=== PATIENT | male | born 1980 | race Caucasian/White ===

== ENCOUNTER 2022-05-14 19:54 | Emergency (ER) | payer MEDICAID, SELFPAY ==
[2022-05-14 19:55] VITALS: BP 160/98; PULSE 102; RESP 16; TEMP 36.6; O2SAT 98; BMI 33.7
[2022-05-14 20:53] LABS: Absolute Lymphocyte Count 1.78 X10^3/uL (0.83-4.51); Absolute Neutrophil Count 4.4 X10^3/uL (2.0-7.7); Basophil# 0.14 X10^3/uL; Basophil% 1.9 % (0-1); Eosinophil# 0.21 X10^3/uL; Eosinophils% 2.9 % (0-5); Hematocrit 47.4 % (40-54); Hemoglobin 16.3 g/dL (13.0-16.5); Lymphocyte # 1.78 X10^3/ul (0.83-4.51); Lymphocyte % 24.4 % (19-41); Mean Corp Hgb Conc 34.4 g/dL (32-36); Mean Corpuscular Hgb 33.7 pg (27.0-32.0); Mean Corpuscular Volume 97.9 fL (80-94); Mean Platelet Vol. 9.1 fl (6.2-12.0); Monocyte% 9.6 % (0-10); NRBC Flagged by Analyzer 0 % (0-5); Neutrophil # 4.44 X10^3/uL (2.7-7.7); Neutrophil % 60.8 % (47-70); Platelet Count 233 K/mm3 (150-450); RBC Distribution Width CV 12.1 % (11.6-14.6); RBC Distribution Width SD 43.8 fl (35.1-43.9); Red Blood Count 4.84 M/mm3 (4.6-6.2); White Blood Count 7.3 K/mm3 (4.4-11.0)
[2022-05-14 21:06] LABS: Anion Gap 10 (5-15); BUN 4 mg/dL (7-18); BUN/Creat Ratio 4.8 RATIO (10-20); Calcium,Total 8.6 mg/dL (8.5-10.1); Chloride 105 mmol/L (98-107); Creatinine, Serum 0.84 mg/dL (0.70-1.30); EST Glomerular Filtration Rate 106 mL/min (>60); Est Glom Filt Rate - Afr Amer 128 mL/min (>60); Estimated Creatinine Clearance 136.92 ml/min; Glucose 118 mg/dL (74-106); Potassium 3.8 mmol/L (3.5-5.1); Sodium Level 137 mmol/L (136-145)
[2022-05-14 21:17] LABS: Amphetamine Urine VISTA NEGATIVE (<1000 ng/mL); Barbiturate Urine VISTA NEGATIVE (< 200 ng/mL); Benzodiazepine Urine VISTA NEGATIVE (< 200 ng/mL); Cocaine Urine VISTA NEGATIVE (< 300 ng/mL); Ecstacy Urine VISTA NEGATIVE (< 500 ng/mL); Methadone Urine VISTA NEGATIVE (< 300 ng/mL); PCP Urine VISTA NEGATIVE (< 25 ng/mL); THC Urine VISTA NEGATIVE (< 50 ng/mL); Vista UDS pH Range 5
--- NOTE | 2022-05-14 21:18 | EDS_ITS ---
HPI <Dr. Issac Hemphill MD - Last Filed: 05/14/22 21:28> HPI - Psych History of Present Illness Chief Complaint: Mental Health Detail of Chief Complaint: Depression, anxiety suicidal thoughts Informant: patient Onset/Context/Timing Onset: Days Context: Sudden Onset Conflict: Family, Work and Financial Timing: Continuous Current Severity: Moderate Maximum Severity: Severe Worsened by: Alcohol intoxication Relieved by: Nothing Associated Symptoms Associated Symptoms - Psych: Positive for Depressed, Change in Eating, Change in sleeping, Decreased Interest, Hopelessness and Suicidal Thoughts; Negative for Guilt, Easily distracted, Grandiosity, Flight of Ideas, Increased activity, Pressured Speech, Agitated, Angry, Hostile, Threatening, Confusion, Paranoia, Visual Hallucinations or Auditory Hallucinations Specific plan (suicidal thought): Presently he has no specific plan. When asked if he were to harm himself h Narrative Narrative: Patient is a 41-year-old male who presents because of depression, anxiety and hopelessness. He states he cannot hold a job. He states he is going to lose his residence. He does admit to smoking daily and drinking 6-12 beers a day. He states he no longer uses illicit drugs. He is . He has been for 9 years. He has no children. He was hospitalized 22 years ago for suicidal attempt. He states he does not believe he would harm himself because of the effect it had on his family. Patient is present on no meds. He states he has never been on medication for depression or anxiety. He then commented he was on Wellbutrin for smoke cessation; however, he had adverse reaction and became wild and agitated. He states he may have been on and SSRI and had an adverse reaction. Prior similar symptoms: Yes Recent Illness/Hospitalization: No PFSH <Dr. Issac Hemphill MD - Last Filed: 05/14/22 21:28> PFSH Medical History (Updated 05/14/22 @ 21:[address] Issac Hemphill MD) Anxiety Depression Allergy/AdvReac Type Severity Reaction Status Date / Time No Known Allergies Allergy Verified 05/14/22 20:00 Social History (Updated 05/14/22 @ 21:[address] Issac Hemphill MD) household members: none Smoking Status: Heavy Smoker (>10/day) alcohol intake: current alcohol intake frequency: 3 or more drinks per day substance use type: former substance user ROS <Dr. Issac Hemphill MD - Last Filed: 05/14/22 21:28> ROS ED Constitutional Constitutional ED: Denies chills, fever(s), subjective, sweats or weight loss Eyes Eyes: Denies blurry vision, change in vision or diplopia ENT ENT ED: Denies ear pain, rhinorrhea or sore throat Cardiovascular Cardiovascular: Denies chest pain, orthopnea, palpitations or racing heartbeat Respiratory/Chest Respiratory/Chest: Denies cough, dyspnea, dyspnea on exertion or orthopnea Gastrointestinal Gastrointestinal: Denies abdominal pain, melena, nausea or vomiting Genitourinary Genitourinary ED: Denies dysuria, hematuria or urinary frequency Musculoskeletal Musculoskeletal: Denies arthralgias, back pain, myalgias or neck pain Integumentary Denies abscess, Abrasions or rash Neurologic Neurologic: Denies headache(s), paresthesias or weakness Psychiatric Psychiatric: Reports anxiety, depression and suicidal thoughts Endocrine Endocrinology: Denies polydipsia, polyphagia or polyuria Hematologic/Lymphatic Hematologic/Lymphatic: Denies easy bleeding or easy bruising EXAM <Dr. Issac Hemphill MD - Last Filed: 05/14/22 21:28> Physical Exam Const Vital Signs: 05/14/22 19:55 05/15/22 00:00 05/15/22 01:00 Temperature 98 F Temperature Source Temporal Pulse Rate 102 H 69 Respiratory Rate 16 16 16 Blood Pressure 160/98 H 133/74 H Blood Pressure Mean 118 93 Pulse Ox 98 99 Oxygen Delivery Method Room Air Room Air 05/15/22 02:00 05/15/22 04:00 05/15/22 05:00 Temperature Temperature Source Pulse Rate 86 Respiratory Rate 14 16 16 Blood Pressure Blood Pressure Mean Pulse Ox 98 Oxygen Delivery Method Room Air Room Air 05/15/22 06:00 05/15/22 07:03 Temperature Temperature Source Pulse Rate 74 Respiratory Rate 16 18 Blood Pressure 140/90 H Blood Pressure Mean 106 Pulse Ox 97 Oxygen Delivery Method Room Air Room Air Positive well nourished, well developed, obese and unkempt General Appearance ED: unkempt and well developed; Negative for NAD or pallor Nutritional Appearance: obese HEENT Reports moist mucous membranes HEENT Narrative: Ears normal. TMs normal. Nares patent. Posterior pharynx not erythema or exudate. Uvula midline. normocephalic and atraumatic Eyes PERRL and EOMs intact bilaterally General Eye ED: Negative for pale conjunctiva or scleral icterus Neck no lymphadenopathy, supple and no JVD Resp normal respiratory effort and clear to auscultation bilaterally Cardio S1 normal heart sound, S2 normal heart sound and no murmurs Rate: regular rate Rhythm: regular rhythm GI non-tender, non-distended and no masses Auscultation: hypoactive bowel sounds Palpation: soft Back/Spine no CVA tenderness Cervical Spine: Negative for cervical spine tenderness Thoracic Spine / Upper Back: Negative for thoracic spinal tenderness Lumbar Spine / Lower Back: Negative for lumbar spinal tenderness Extremity Negative for normal to inspection Extremity Narrative: Positive pedal edema bilaterally. Suspect dependent pedal edema. General Extremety ED: Yes edema; Negative for tenderness or other findings General Extremity: edema; Negative for other findings Neuro oriented x3, CN's II-XII intact bilaterally, no sensory deficits noted and deep tendon reflexes 2+ bilaterally Neuro Narrative: There is no clonus or Babinski sign. Jason Coma Scale: document GCS findings Spontaneous Extensor Response Sensorium / Orientation: alert, oriented to person, oriented to place and oriented to time Motor Exam: strength 5/5 throughout and muscle tone normal throughout Psych thought process normal, cooperative, denies hallucinations and denies homicidal ideation; Negative for denies suicidal ideation Appearance: appropriate and unkempt; Negative for grossly normal Attitude: calm and withdrawn Activity / Motor Behavior: appropriate eye contact and psychomotor slowing Speech: minimal, slow and soft Mood & Affect: depressed, sad, tearful and labile affect Thought Process: normal thought process Thought Content: suicidality, No hallucination(s), No derealization, No depersonalization and No rumination(s) Attention / Concentration: attention grossly intact and concentration grossly intact Memory / Cognition: memory grossly intact Insight: fair Judgement: fair Skin Skin Narrative: Patient has minimal abrasions lower lower extremity exam area General Skin Exam: Negative for jaundice or pallor Lesions: no lesions Rashes: no rashes Trauma: abrasion <Dr. Jamshid Snow MD - Last Filed: 05/15/22 08:21> Physical Exam Const Vital Signs: 05/14/22 19:55 05/15/22 00:00 05/15/22 01:00 Temperature 98 F Temperature Source Temporal Pulse Rate 102 H 69 Respiratory Rate 16 16 16 Blood Pressure 160/98 H 133/74 H Blood Pressure Mean 118 93 Pulse Ox 98 99 Oxygen Delivery Method Room Air Room Air 05/15/22 02:00 05/15/22 04:00 05/15/22 05:00 Temperature Temperature Source Pulse Rate 86 Respiratory Rate 14 16 16 Blood Pressure Blood Pressure Mean Pulse Ox 98 Oxygen Delivery Method Room Air Room Air 05/15/22 06:00 05/15/22 07:03 Temperature Temperature Source Pulse Rate 74 Respiratory Rate 16 18 Blood Pressure 140/90 H Blood Pressure Mean 106 Pulse Ox 97 Oxygen Delivery Method Room Air Room Air MDM <Dr. Issac Hemphill MD - Last Filed: 05/14/22 21:28> [facility] MDM Narrative Medical decision making narrative: Patient presents as labile emotional and tearful stating he can no longer live like this and feels hopeless. Concern he will lose his residence and unable to sustain constant employment. Patient believes he would benefit from hospitalization. He does not want to harm himself. He does admit to suicide attempt 22 years ago requiring hospitalization Lab Data Attestation: I reviewed the patient's lab results. Lab results narrative: Patient's work-up is remarkable an alcohol level greater than 300. Crisis will be contacted once his level is below 100 per their protocol. Labs: Laboratory Results - last 24 hr 05/14/22 05/14/22 05/14/22 20:39 20:39 20:39 WBC 7.3 RBC 4.84 Hgb 16.3 Hct 47.4 MCV 97.9 H MCH 33.7 H MCHC 34.4 RDW Std Deviation 43.8 RDW Coeff of Masha 12.1 Plt Count 233 MPV 9.1 Immature Gran % (Auto) 0.400 Neut % (Auto) 60.8 Lymph % (Auto) 24.4 Chaves % (Auto) 9.6 Eos % (Auto) 2.9 Baso % (Auto) 1.9 H Absolute Neuts (auto) 4.4 Absolute Lymphs (auto) 1.78 Nucleated RBC % 0 Sodium 137 Potassium 3.8 Chloride 105 Carbon Dioxide 22.0 Anion Gap 10 BUN 4 L Creatinine 0.84 Estim Creat Clear Calc 136.92 Est GFR (MDRD) Af Amer 128 Est GFR (MDRD) Non-Af 106 BUN/Creatinine Ratio 4.8 L Glucose 118 H Calcium 8.6 Urine Opiates Screen Urine Methadone Screen Ur Barbiturates Screen Ur Phencyclidine Scrn Ur Amphetamines Screen MDMA (Ecstasy) Screen U Benzodiazepines Scrn Urine Cocaine Screen U Cannabinoids Screen Ur Drug Screen Comment Ethyl Alcohol 371.0 H* 05/14/22 05/15/22 05/15/22 20:44 04:05 07:00 WBC RBC Hgb Hct MCV MCH MCHC RDW Std Deviation RDW Coeff of Masha Plt Count MPV Immature Gran % (Auto) Neut % (Auto) Lymph % (Auto) Chaves % (Auto) Eos % (Auto) Baso % (Auto) Absolute Neuts (auto) Absolute Lymphs (auto) Nucleated RBC % Sodium Potassium Chloride Carbon Dioxide Anion Gap BUN Creatinine Estim Creat Clear Calc Est GFR (MDRD) Af Amer Est GFR (MDRD) Non-Af BUN/Creatinine Ratio Glucose Calcium Urine Opiates Screen NEGATIVE Urine Methadone Screen NEGATIVE Ur Barbiturates Screen NEGATIVE Ur Phencyclidine Scrn NEGATIVE Ur Amphetamines Screen NEGATIVE MDMA (Ecstasy) Screen NEGATIVE U Benzodiazepines Scrn NEGATIVE Urine Cocaine Screen NEGATIVE U Cannabinoids Screen NEGATIVE Ur Drug Screen Comment Ethyl Alcohol 158.0 91.0 <Dr. Jamshid Snow MD - Last Filed: 05/15/22 08:21> MDM MDM Narrative Medical decision making narrative: Patient presents as labile emotional and tearful stating he can no longer live like this and feels hopeless. Concern he will lose his residence and unable to sustain constant employment. Patient believes he would benefit from hospitalization. He does not want to harm himself. He does admit to suicide attempt 22 years ago requiring hospitalization Patient turned over to me by the overnight physician. Patient's had some nausea and vomiting and anxiety. Possible withdrawal. He was given p.o. Zofran and p.o. Ativan because currently does not have an IV. His second repeat alcohol returned and is 91. Patient is resting comfortably. Will be evaluated by crisis. Lab Data Labs: Laboratory Results - last 24 hr 05/14/22 05/14/22 05/14/22 20:39 20:39 20:39 WBC 7.3 RBC 4.84 Hgb 16.3 Hct 47.4 MCV 97.9 H MCH 33.7 H MCHC 34.4 RDW Std Deviation 43.8 RDW Coeff of Masha 12.1 Plt Count 233 MPV 9.1 Immature Gran % (Auto) 0.400 Neut % (Auto) 60.8 Lymph % (Auto) 24.4 Chaves % (Auto) 9.6 Eos % (Auto) 2.9 Baso % (Auto) 1.9 H Absolute Neuts (auto) 4.4 Absolute Lymphs (auto) 1.78 Nucleated RBC % 0 Sodium 137 Potassium 3.8 Chloride 105 Carbon Dioxide 22.0 Anion Gap 10 BUN 4 L Creatinine 0.84 Estim Creat Clear Calc 136.92 Est GFR (MDRD) Af Amer 128 Est GFR (MDRD) Non-Af 106 BUN/Creatinine Ratio 4.8 L Glucose 118 H Calcium 8.6 Urine Opiates Screen Urine Methadone Screen Ur Barbiturates Screen Ur Phencyclidine Scrn Ur Amphetamines Screen MDMA (Ecstasy) Screen U Benzodiazepines Scrn Urine Cocaine Screen U Cannabinoids Screen Ur Drug Screen Comment Ethyl Alcohol 371.0 H* 05/14/22 05/15/22 05/15/22 20:44 04:05 07:00 WBC RBC Hgb Hct MCV MCH MCHC RDW Std Deviation RDW Coeff of Masha Plt Count MPV Immature Gran % (Auto) Neut % (Auto) Lymph % (Auto) Chaves % (Auto) Eos % (Auto) Baso % (Auto) Absolute Neuts (auto) Absolute Lymphs (auto) Nucleated RBC % Sodium Potassium Chloride Carbon Dioxide Anion Gap BUN Creatinine Estim Creat Clear Calc Est GFR (MDRD) Af Amer Est GFR (MDRD) Non-Af BUN/Creatinine Ratio Glucose Calcium Urine Opiates Screen NEGATIVE Urine Methadone Screen NEGATIVE Ur Barbiturates Screen NEGATIVE Ur Phencyclidine Scrn NEGATIVE Ur Amphetamines Screen NEGATIVE MDMA (Ecstasy) Screen NEGATIVE U Benzodiazepines Scrn NEGATIVE Urine Cocaine Screen NEGATIVE U Cannabinoids Screen NEGATIVE Ur Drug Screen Comment Ethyl Alcohol 158.0 91.0 Discharge Plan Triage Chief Complaint: Mental Health ED Provider: Issac Hemphill Dx/Rx/DC Orders Clinical Impression: Depression, Suicidal thoughts, Alcoholism, Blood alcohol level greater than 0.3 Primary Care Provider: Care Physician,No Primary Referrals: Care Physician,No Primary [Primary Care Provider] -
--- NOTE | 2022-05-14 22:00 | ED.RN ---
PATIENT MADE AWARE OF ETOH LEVEL AND THAT HE WOULD HAVE TO WAIT FOR ETOH LEVEL TO DROP BEFORE CRISIS COULD SPEAK TO HIM. HE IS AWARE OF THE PLAN AND AGREES NO OTHER NEEDS AT THIS TIME
[2022-05-15] VITALS (18 sets, daily range): BP systolic 130–140; BP diastolic 74–98; PULSE 69–97; RESP 14–20; TEMP 36.6; O2SAT 97–99
--- NOTE | 2022-05-15 04:49 | ED.RN ---
patient made aware of test results. will redraw blood in 2-3 hours to recheck level patient aware and agrees to plan
[2022-05-15] MEDS: LORazepam 1 MG Tablet PO (07:24)
[2022-05-15] MEDS: Ondansetron ODT 4 MG Tablet PO (07:24)
--- NOTE | 2022-05-15 07:49 | NURSING ---
CRISIS IN ROOM
[2022-05-15] MEDS: LORazepam 2 MG/ML Syringe 1 MG IM (08:25)
--- NOTE | 2022-05-15 12:00 | CM.ED ---
Addendum entered by Pascale Orozco 05/15/22 13:36: SW placed a call to [facility] to inquire about referral. [facility] states they have not received a referral yet for pt. SW placed a call to [facility], they have had trouble with their faxes and had to scan referral and sent by email about 15-20 minutes ago. SW also received message from Sidra at [facility] stating they also referred pt to [facility] and confirmed they are having difficulties with their faxes. SW also faxed referral to [facility] and [facility] to make sure facilities get the referral for pt. Pascale Orozco NUCLEAR MEDICAL TECHNOLOGIST, ACUPRESSURE THERAPIST Original Note: Social Work Note SW placed a call to Chyna at [facility] and left message for update on pt. SW received message from Chyna stating she has completed assessment for pt and referral has been faxed to [facility]. Pascale Orozco MSW, ACUPRESSURE THERAPIST
--- NOTE | 2022-05-15 13:42 | NURSING ---
CALLED KYLE, ETA IS 5 HOURS. ASKED TO OUTSOURCE. VINCE SAID NO ONE WILL DO IT BECAUSE IT'S A 1 HOUR AND 40 MIN TRIP
--- NOTE | 2022-05-15 14:02 | CM.ED ---
Addendum entered by Pascale Orozco 05/15/22 14:17: Transfer form completed. Original Note: Social Work Note SW spoke with Aubrey Mahsa. Pt has been accepted to [facility]. [place] is Completed. SW asked Mahsa about transfer form, SW informed that nurse has transfer form. As noted, pt has been accepted to [facility]. Accepting physician is Dr. Danish Boone PICKLER HELPER. RN to RN is [phone] option 1. Pt is going to Dual Diagnosis Unit. Pascale Orozco OPERATOR COATING FURNACE, CHARGING MACHINE OPERATOR
--- NOTE | 2022-05-15 17:37 | CM.ED ---
Social Work Note SW updated pt that he has been accepted to [facility] - just waiting transportation. Pt asked if this was voluntary. SW informed pt that he is [place] [facility] so pt has to remain at facility for 72 hours. Pt states that he was supposed to start a new job last night, and they are aware pt is at [facility] but states he is supposed to be there Wednesday. SW informed pt that he can get a work release form while at [facility]. Pt states understanding. Plan: [facility] Pascale Orozco CREWMAN MAIN BATTLE TANK, 3D MODELER
== END 2022-05-16 00:06 ==
PROVIDERS: Emergency Medicine; Emergency Provider Emergency Medicine; Visit Provider Emergency Medicine
DX: F32.A Depression, unspecified (principal); F10.229 Alcohol dependence with intoxication, unspecified; R45.851 Suicidal ideations; F17.200 Nicotine dependence, unspecified, uncomplicated; E66.9 Obesity, unspecified
CPT/HCPCS: 36415; 80048; 80307; 82077; 85025; 87811; 96372; 99285

== ENCOUNTER → 2022-06-25 | Outpatient (CLI) | payer MEDICAID, SELFPAY ==
[2022-06-25 17:47] LABS: Hematocrit 45.4 % (40-54); Hemoglobin 15.2 g/dL (13.0-16.5); Mean Corp Hgb Conc 33.5 g/dL (32-36); Mean Corpuscular Hgb 32.6 pg (27.0-32.0); Mean Corpuscular Volume 97.4 fL (80-94); Mean Platelet Vol. 9.6 fl (6.2-12.0); Platelet Count 236 K/mm3 (150-450); RBC Distribution Width CV 12.4 % (11.6-14.6); RBC Distribution Width SD 44.4 fl (35.1-43.9); Red Blood Count 4.66 M/mm3 (4.6-6.2); White Blood Count 9.5 K/mm3 (4.4-11.0)
[2022-06-25 18:10] LABS: ALB/GLOB Ratio 0.7 RATIO (0.9-2.4); AST(SGOT) 57 U/L (15-37); Alanine Aminotransfer ALT/SGPT 56 U/L (16-61); Albumin, Serum 3.5 g/dL (3.2-5.0); Alkaline Phosphatase 99 U/L (45-117); Anion Gap 9 (5-15); BUN 5 mg/dL (7-18); BUN/Creat Ratio 5.9 RATIO (10-20); Calcium,Total 9.1 mg/dL (8.5-10.1); Chloride 105 mmol/L (98-107); Creatinine, Serum 0.84 mg/dL (0.70-1.30); EST Glomerular Filtration Rate 106 mL/min (>60); Est Glom Filt Rate - Afr Amer 128 mL/min (>60); Globulin 4.7 g/dL (2.2-4.2); Glucose 105 mg/dL (74-106); Potassium 3.9 mmol/L (3.5-5.1); Protein, Total 8.2 g/dL (6.4-8.2); Sodium Level 139 mmol/L (136-145)
== END | disposition home or self-care (01) ==
LOC: MTLAB 15:42
PROVIDERS: Referring Provider Physician Assistant; Visit Provider Physician Assistant
DX: D18.01 Hemangioma of skin and subcutaneous tissue (principal); R60.0 Localized edema; L29.8 Other pruritus; L73.8 Other specified follicular disorders; L71.8 Other rosacea
CPT/HCPCS: 36415; 80053; 85027

== ENCOUNTER → 2023-05-26 | Outpatient (CLI) | payer MEDICAID, SELFPAY ==
--- NOTE | 2023-05-26 15:46 | RAD_ITS ---
INDICATION: fall EXAMINATION/TECHNIQUE: X-RAY - XR Spine Lumbar Min 4 Views COMPARISON: None. FINDINGS: VERTEBRAE: Age-indeterminate superior endplate compression deformity of L1 with 30% anterior vertebral height loss. Other multilevel chronic appearing vertebral height loss in the lower thoracic and lumbar spine without gross cortical disruption. Mild lateral curvature of the lumbar spine with chronic endplate degenerative changes in the upper lumbar spine.. No spondylolisthesis. Preservation of the normal lumbar lordosis. Mild facet arthropathy throughout the lower lumbar spine. DISCS: Mild disc height loss at L2-3. INCLUDED ABDOMEN: Included bowel gas pattern is non-obstructive. RAD/L/S Spine Min 4 Views IMPRESSION: Age-indeterminate moderate superior endplate compression deformity of L1. Correlate for localized pain. CT or MRI could further evaluate clinically indicated. Other chronic vertebral height loss and endplate degenerative changes as above.. Electronically Signed: Jimenez Daniel MD at 17:08 EDT ,
== END | disposition home or self-care (01) ==
LOC: MTRAD 15:46
PROVIDERS: Referring Provider Physician Assistant Surgical; Visit Provider Physician Assistant Surgical
DX: S39.012A Strain of muscle, fascia and tendon of lower back, initial encounter (principal); W19.XXXA Unspecified fall, initial encounter
CPT/HCPCS: 72110

== ENCOUNTER → 2023-10-14 | Outpatient (CLI) | payer MEDICAID, SELFPAY ==
[2023-10-14 15:26] LABS: Absolute Lymphocyte Count 1.47 X10^3/uL (0.83-4.51); Absolute Neutrophil Count 6.2 X10^3/uL (2.0-7.7); Basophil% 1.1 % (0-1); Eosinophil# 0.36 X10^3/uL; Hematocrit 41.9 % (40-54); Lymphocyte # 1.47 X10^3/ul (0.83-4.51); Lymphocyte % 16.5 % (19-41); Mean Corp Hgb Conc 33.4 g/dL (32-36); Mean Corpuscular Hgb 31.2 pg (27.0-32.0); Mean Corpuscular Volume 93.3 fL (80-94); Monocyte# 0.75 X10^3/uL; Monocyte% 8.4 % (0-10); NRBC Flagged by Analyzer 0 % (0-5); Neutrophil # 6.17 X10^3/uL (2.7-7.7); Neutrophil % 69.6 % (47-70); Platelet Count 301 K/mm3 (150-450); RBC Distribution Width CV 11.6 % (11.6-14.6); RBC Distribution Width SD 39.8 fl (35.1-43.9); Red Blood Count 4.49 M/mm3 (4.6-6.2); White Blood Count 8.9 K/mm3 (4.4-11.0)
[2023-10-14 15:40] LABS: Vitamin D,25 Hydroxy 17.5 ng/mL
[2023-10-14 15:46] LABS: ALB/GLOB Ratio 0.9 RATIO (0.9-2.4); AST(SGOT) 24 U/L (15-37); Alanine Aminotransfer ALT/SGPT 26 U/L (16-61); Albumin, Serum 3.5 g/dL (3.2-5.0); Alkaline Phosphatase 48 U/L (45-117); Anion Gap 8 (5-15); BUN 16 mg/dL (7-18); BUN/Creat Ratio 14.4 RATIO (10-20); Chloride 107 mmol/L (98-107); Cholesterol 154 mg/dL (200); Creatinine, Serum 1.11 mg/dL (0.70-1.30); EST Glomerular Filtration Rate 77 mL/min (>60); Est Glom Filt Rate - Afr Amer 93 mL/min (>60); Globulin 3.7 g/dL (2.2-4.2); Glucose 112 mg/dL (74-106); High Density Lipoprotein 42 mg/dL; Potassium 4.3 mmol/L (3.5-5.1); Protein, Total 7.2 g/dL (6.4-8.2); Sodium Level 141 mmol/L (136-145); Thyroid Stim Hormone (TSH) 1.25 uIU/mL (0.358-3.74); Triglycerides 71 mg/dL; Very Low Density Lipoprotein 14 mg/dL (5-40)
== END | disposition home or self-care (01) ==
LOC: MTLAB 11:39
PROVIDERS: PCP Family Medicine; Referring Provider Family Medicine; Visit Provider Family Medicine
DX: Z00.00 Encounter for general adult medical examination without abnormal findings (principal); Z13.220 Encounter for screening for lipoid disorders; Z13.1 Encounter for screening for diabetes mellitus; Z71.85 Encounter for immunization safety counseling; E55.9 Vitamin D deficiency, unspecified
CPT/HCPCS: 36415; 80053; 80061; 82306; 84443; 85025

== ENCOUNTER → 2024-11-30 | Outpatient (CLI) | payer MEDICAID, SELFPAY ==
[2024-11-30 17:41] LABS: Absolute Lymphocyte Count 1.84 X10^3/uL (0.83-4.51); Absolute Neutrophil Count 4.8 X10^3/uL (2.0-7.7); Basophil# 0.09 X10^3/uL; Basophil% 1.1 % (0-1); Eosinophil# 0.18 X10^3/uL; Eosinophils% 2.2 % (0-5); Hematocrit 44.1 % (40-54); Hemoglobin 15.1 g/dL (13.0-16.5); Lymphocyte # 1.84 X10^3/ul (0.83-4.51); Lymphocyte % 22.6 % (19-41); Mean Corp Hgb Conc 34.2 g/dL (32-36); Mean Corpuscular Hgb 31.4 pg (27.0-32.0); Mean Corpuscular Volume 91.7 fL (80-94); Mean Platelet Vol. 9.8 fl (6.2-12.0); Monocyte# 1.18 X10^3/uL; Monocyte% 14.5 % (0-10); NRBC Flagged by Analyzer 0 % (0-5); Neutrophil # 4.82 X10^3/uL (2.7-7.7); Neutrophil % 59.4 % (47-70); Platelet Count 221 K/mm3 (150-450); RBC Distribution Width CV 12.4 % (11.6-14.6); RBC Distribution Width SD 41.9 fl (35.1-43.9); Red Blood Count 4.81 M/mm3 (4.6-6.2); White Blood Count 8.1 K/mm3 (4.4-11.0)
[2024-11-30 18:04] LABS: Vitamin D,25 Hydroxy 48.3 ng/mL
[2024-11-30 18:18] LABS: ALB/GLOB Ratio 0.9 RATIO (0.9-2.4); AST(SGOT) 35 U/L (15-37); Alanine Aminotransfer ALT/SGPT 34 U/L (16-61); Albumin, Serum 3.8 g/dL (3.2-5.0); Alkaline Phosphatase 92 U/L (45-117); Anion Gap 8 (5-15); BUN 10 mg/dL (7-18); BUN/Creat Ratio 9.3 RATIO (10-20); Calcium,Total 9.7 mg/dL (8.5-10.1); Chloride 100 mmol/L (98-107); Cholesterol 217 mg/dL (200); Creatinine, Serum 1.07 mg/dL (0.70-1.30); EST Glomerular Filtration Rate 79 mL/min (>60); Est Glom Filt Rate - Afr Amer 96 mL/min (>60); Globulin 4.3 g/dL (2.2-4.2); Glucose 112 mg/dL (74-106); High Density Lipoprotein 86 mg/dL; Potassium 3.3 mmol/L (3.5-5.1); Protein, Total 8.1 g/dL (6.4-8.2); Sodium Level 134 mmol/L (136-145); Triglycerides 99 mg/dL; Very Low Density Lipoprotein 20 mg/dL (5-40)
== END | disposition home or self-care (01) ==
LOC: MTLAB 15:44
PROVIDERS: PCP Family Medicine; Referring Provider Family Medicine; Visit Provider Family Medicine
DX: Z13.220 Encounter for screening for lipoid disorders (principal); E55.9 Vitamin D deficiency, unspecified; R03.0 Elevated blood-pressure reading, without diagnosis of hypertension; Z13.1 Encounter for screening for diabetes mellitus
CPT/HCPCS: 36415; 80053; 80061; 82306; 84443; 85025